=== PATIENT | male | born 1985 | race African-American/Black ===

== ENCOUNTER 2017-03-24 00:45 | Emergency (ER) | payer MEDICAID | END 2017-03-24 02:45 | disposition home or self-care (01) | LOC: D.ER 00:45 | DX: S09.90XA Unspecified injury of head, initial encounter (principal); Y04.2XXA Assault by strike against or bumped into by another person, initial encounter; Y93.89 Activity, other specified; Y92.89 Other specified places as the place of occurrence of the external cause; F43.10 Post-traumatic stress disorder, unspecified; F17.200 Nicotine dependence, unspecified, uncomplicated ==

== ENCOUNTER 2017-03-28 06:28 | Emergency (ER) | payer MEDICAID | END 2017-03-28 07:18 | disposition home or self-care (01) | LOC: D.ER 06:28 | DX: S09.90XA Unspecified injury of head, initial encounter (principal); Y04.2XXA Assault by strike against or bumped into by another person, initial encounter; Y93.89 Activity, other specified; Y92.89 Other specified places as the place of occurrence of the external cause; S19.9XXA Unspecified injury of neck, initial encounter; F22 Delusional disorders; F43.10 Post-traumatic stress disorder, unspecified; F17.200 Nicotine dependence, unspecified, uncomplicated ==

== ENCOUNTER 2020-04-25 07:41 | Emergency (ER) | payer SELFPAY ==
[~2020-04-25] VITALS: Ht 175.3 cm; Wt 90.9 kg
[2020-04-25 07:41] VITALS: Ht 175.3 cm; Wt 90.9 kg
[2020-04-25] MEDS ORDERED: IBUPROFEN800 MG PO (09:10)
[2020-04-25] MEDS ORDERED: ACETAMINOPHEN500 M1 PO (09:10)
[2020-04-25] MEDS ORDERED: CYCLOBENZAPRINE10 MG PO (09:10)
[2020-04-25 09:13] VITALS: BP 149/94
== END 2020-04-25 09:13 | disposition home or self-care (01) ==
LOC: D.ER 07:41
DX: S60.222A Contusion of left hand, initial encounter (principal); M79.18 Myalgia, other site; M79.642 Pain in left hand; W50.0XXA Accidental hit or strike by another person, initial encounter; Y93.9 Activity, unspecified; Y92.9 Unspecified place or not applicable